=== PATIENT | male | born 1970 | race Caucasian/White ===

== ENCOUNTER 2022-09-13 15:54 | Outpatient (CLI) | payer OTHER, SELFPAY ==
[2022-09-13 22:22] LABS: Albumin* 4.6 g/dL (3.3-5.0)
[2022-09-13 22:23] LABS: Chloride* 99 mmol/L (96-114); Potassium* 4.3 mmol/L (3.6-5.1); Sodium* 134 mmol/L (135-149)
[2022-09-13 22:25] LABS: Aspartate Amino Transferase* 44 U/L (12-35); Bilirubin Total* 0.9 mg/dL (0.1-1.5); Carbon Dioxide* 26 mmol/L (20-32); Estimated Glomerular Filt Rate 39 ml/min; Total Protein* 7.6 g/dL (6.0-8.3)
[2022-09-13 22:26] LABS: Alanine Aminotransferase* 31 U/L (4-50); Alkaline Phosphatase* 75 U/L (40-150); Calcium* 9.6 mg/dL (8.4-10.6); Glucose* 100 mg/dL (60-115)
[2022-09-13 22:40] LABS: Blood Urea Nitrogen* 27 mg/dL (7-30)
[2022-09-13 22:51] LABS: NT Pro B Type NatriureticPept* 109 pg/mL; Troponin I* < 0.01 ng/mL (0.01-0.04)
== END 2022-09-13 15:55 | disposition home or self-care (01) ==
PROVIDERS: Visit Provider Nurse Practitioner Family
DX: R06.00 Dyspnea, unspecified (principal); N17.9 Acute kidney failure, unspecified; I10 Essential (primary) hypertension
CPT/HCPCS: 80053; 83880; 84484

== ENCOUNTER 2022-10-21 15:39 | Outpatient (CLI) | payer OTHER, SELFPAY | END 2022-10-21 15:40 | disposition home or self-care (01) | LOC: NFLDREF 10-24 17:37 | PROVIDERS: PCP Nurse Practitioner Family; Referring Provider Nurse Practitioner Family; Visit Provider Nurse Practitioner Family | DX: N17.9 Acute kidney failure, unspecified (principal) | CPT/HCPCS: 80048 ==

== ENCOUNTER 2022-10-29 09:57 | Outpatient (CLI) | payer OTHER, SELFPAY | END 2022-10-29 09:58 | disposition home or self-care (01) | LOC: RAD 09:58 | PROVIDERS: PCP Nurse Practitioner Family; Visit Provider Nurse Practitioner Family | DX: R07.89 Other chest pain (principal); Z82.49 Family history of ischemic heart disease and other diseases of the circulatory system | CPT/HCPCS: 93306 ==

== ENCOUNTER 2024-04-30 10:31 | Outpatient (CLI) | payer OTHER, SELFPAY | END 2024-04-30 10:32 | disposition home or self-care (01) | PROVIDERS: PCP Nurse Practitioner Family; Visit Provider Nurse Practitioner Family | DX: E78.5 Hyperlipidemia, unspecified (principal); I10 Essential (primary) hypertension; Z12.5 Encounter for screening for malignant neoplasm of prostate | CPT/HCPCS: 80053; 80061; 85025; G0103 ==

== ENCOUNTER 2025-01-08 19:55 | Outpatient (CLI) | payer OTHER, SELFPAY | END 2025-01-08 19:56 | disposition home or self-care (01) | PROVIDERS: PCP Nurse Practitioner Family; Visit Provider Nurse Practitioner Family | DX: R73.03 Prediabetes (principal); S31.109A Unspecified open wound of abdominal wall, unspecified quadrant without penetration into peritoneal cavity, initial encounter | CPT/HCPCS: 80053; 83036; 85025 ==

== ENCOUNTER 2025-04-25 08:02 | Outpatient (CLI) | payer OTHER, SELFPAY ==
--- NOTE | 2025-04-25 08:48 | P.ANES_ITS ---
Anesthesia Charges Start Date/Time Anesthesia Start Date: 04/25/25 Anesthesia Start Time: 08:47 Stop Date/Time Anesthesia Stop Date: 04/25/25 Anesthesia Stop Time: 09:07 Coding CPT Codes CPT Codes: ANES UPR GI NDSC PX NOS - 60778 ([id number]) P2 - PATIENT W/MILD SYST DISEASE, QK - WINTERIZER 2-4 CNCRNT ANES PROC, QX - KITCHEN AND COUNTER WORKER SVC W/ MD MED DIRECTION
--- NOTE | 2025-04-25 08:48 | W.ANESCHARGE ---
Anesthesia Charges Start Date/Time Anesthesia Start Date: 04/25/25 Anesthesia Start Time: 08:47 Stop Date/Time Anesthesia Stop Date: 04/25/25 Anesthesia Stop Time: 09:07 Coding CPT Codes CPT Codes: ANES UPR GI NDSC PX NOS - [id number] ([id number]) P2 - PATIENT W/MILD SYST DISEASE, QK - CLINICAL DERMATOLOGIST 2-4 CNCRNT ANES PROC, QX - RECRUITMENT SPECIALIST SVC W/ MD MED DIRECTION
--- NOTE | 2025-04-25 09:10 | W.ANESCHARGE ---
Anesthesia Charges Start Date/Time Anesthesia Start Date: 04/25/25 Anesthesia Start Time: 08:47 Stop Date/Time Anesthesia Stop Date: 04/25/25 Anesthesia Stop Time: 09:07 Coding CPT Codes CPT Codes: GABY RANGEL INT NDSC NOS - [id number] ([id number]) P2 - PATIENT W/MILD SYST DISEASE, QX - SHAREPOINT SOLUTIONS DEVELOPER SVC W/ MD MED DIRECTION, QK - SUPERVISOR VARNISH 2-4 CNCRNT GABY PROC
--- NOTE | 2025-04-25 09:10 | P.ANES_ITS ---
Anesthesia Charges Start Date/Time Anesthesia Start Date: 04/25/25 Anesthesia Start Time: 08:47 Stop Date/Time Anesthesia Stop Date: 04/25/25 Anesthesia Stop Time: 09:07 Coding CPT Codes CPT Codes: GABY RANGEL INT NDSC NOS - [id number] ([id number]) P2 - PATIENT W/MILD SYST DISEASE, QX - NETWORK AND THREAT SUPPORT SPECIALIST SVC W/ MD MED DIRECTION, QK - SUPERVISOR LACE TEARING 2-4 CNCRNT GABY PROC
--- NOTE | 2025-04-25 09:13 | P.ANES_ITS ---
Anesthesia Charges Start Date/Time Anesthesia Start Date: 04/25/25 Anesthesia Start Time: 08:47 Stop Date/Time Anesthesia Stop Date: 04/25/25 Anesthesia Stop Time: 09:07 Coding CPT Codes CPT Codes: ANES UPR GI NDSC PX NOS - [id number] ([id number]) P2 - PATIENT W/MILD SYST DISEASE, QX - TOOLROOM KEEPER SVC W/ MD MED DIRECTION, QK - BOAT WASHER 2-4 CNCRNT ANES PROC
--- NOTE | 2025-04-25 09:13 | W.ANESCHARGE ---
Anesthesia Charges Start Date/Time Anesthesia Start Date: 04/25/25 Anesthesia Start Time: 08:47 Stop Date/Time Anesthesia Stop Date: 04/25/25 Anesthesia Stop Time: 09:07 Coding CPT Codes CPT Codes: ANES UPR GI NDSC PX NOS - 19851 ([id number]) P2 - PATIENT W/MILD SYST DISEASE, QX - DEER FARMER SVC W/ MD MED DIRECTION, QK - INSPECTOR BARREL 2-4 CNCRNT ANES PROC
== END 2025-04-25 08:03 | disposition home or self-care (01) ==
LOC: OP CLINIC 08:03
PROVIDERS: PCP Nurse Practitioner Family; Visit Provider Surgery
DX: K21.00 Gastro-esophageal reflux disease with esophagitis, without bleeding (principal); K29.70 Gastritis, unspecified, without bleeding; K22.89 Other specified disease of esophagus
CPT/HCPCS: 00731; 00811; 43239; J2704; J3490